=== PATIENT | male | born 1945 | race Caucasian/White ===

== ENCOUNTER 2021-05-11 20:04 | Inpatient (IN) | payer MEDICARE, BC ==
[~2021-05-11] VITALS: Ht 172.7 cm; Wt 69.4 kg
--- NOTE | ~2021-05-11 | EKG ---
[facility] [address] [facility] [place], [place] [address] Draft EK completed, results pending confirmation PATIENT NAME: FILIPE KIMBLE Electrocardiogram DATE OF : 47 PHYSICIAN: PRELIMINARY REPORT #: [id number] REPORT IS CONFIDENTIAL AND NOT TO BE RELEASED WITHOUT AUTHORIZATION
[2021-05-11] MEDS ORDERED: ENTRESTO 24 MG1 EACH PO (20:22)
[2021-05-11] MEDS ORDERED: TOPROL XL50 MG PO (20:22)
[2021-05-11] MEDS ORDERED: PLAVIX75 MG (20:22)
[2021-05-11] MEDS ORDERED: ELIQUIS5 M1 PO (20:22)
[2021-05-12] MEDS ORDERED: AMBIEN CR12.5 MG PO (00:36)
--- NOTE | 2021-05-12 09:47 | OR ---
[facility] [address] [place], [place] [address] Signed DATE OF OPERATION: 05/12/2021 SURGEON: Christopher Willard MD PREOPERATIVE DIAGNOSES: 1. Sepsis. 2. Probable distal common bile duct stone. 3. Elevated liver function test. 4. Anticoagulated. POSTOPERATIVE DIAGNOSES: 1. Sepsis. 2. Probable distal common bile duct stone. 3. Elevated liver function test. 4. Anticoagulated. PROCEDURE: Placement of right femoral vein triple-lumen catheter. ESTIMATED BLOOD LOSS: None. INDICATIONS: Gold is a 75-year-old gentleman, who has significant central and peripheral arterial disease. In fact he just had a left femoral stent placed last week. He is on two different anticoagulants. He had been on opiates and had not had a bowel movement a week. He came to our emergency room for evaluation. His liver function tests were elevated including the total bilirubin, AST, ALT and alkaline phosphatase. He had vomited while in the emergency room and there was some concern about aspiration pneumonia. A CT scan of the chest, abdomen, and pelvis had been performed. The gallbladder itself was not particularly concerning but there appears to be a stone in his distal common bile duct. The distal common bile duct measures about 1.3 cm in diameter. He had been admitted prior to his knowledge to our Internal Medicine service. He has been hypotensive and tachycardic and requiring pressor support. I have been called to come emergently to the ICU to place a central venous access for this gentleman. Given his medication for anticoagulation, we decided we would use his right femoral approach and stay away from the femoral stent on the left side if possible. In addition, he has had significant surgeries and significant scarring in the left groin as well. I explained to Jimbo the nature of a central venous catheter. He understands there is risk including, but not limited to bleeding, infection, scarring, Electronically Signed By: CHRISTOPHER WILLARD MD 05/12/21 0947 PATIENT NAME: GOLD TORRES OPERATIVE REPORT DATE OF : 47 REPORT #: [id number] PHYSICIAN: CHRISTOPHER WILLARD MD PCP: LOIDA MARQUEZ MD REPORT IS CONFIDENTIAL AND NOT TO BE RELEASED WITHOUT AUTHORIZATION [facility] [address] [place] [id number] Signed change in contour of the skin as well as infection of the catheter requiring removal. He had expressed understanding and wished to proceed. PROCEDURE NOTE: Jimbo was kept supine in his ICU bed. We could not palpate his pulses, so we had to use a bedside Doppler to find the right femoral artery. We could also hear the femoral vein. We marked that area appropriately. He was then prepped and draped in the usual sterile fashion. After this, the wound was infiltrated with local anesthetic. I used a small needle to find the femoral vein. We then passed a larger needle into the femoral vein with good withdrawal of dark venous nonpulsatile blood. We then passed a wire without difficulty. The tract was dilated and dilator curved in the appropriate direction without resistance. The triple-lumen catheter was inserted over the wire and the wire had been removed. All three ports were able to draw and flush quite nicely dark venous nonpulsatile blood. The catheter was then held in place with interrupted silk sutures. Dry plastic occlusive dressing was applied per nursing staff. Jimbo tolerated the procedure quite well. Christopher Willard MD [facility] /[id number] cc: Christopher Willard MD Copies: CHRISTOPHER WILLARD MD ~ Electronically Signed By: CHRISTOPHER WILLARD MD 05/12/21 0947 PATIENT NAME: GOLD TORRES OPERATIVE REPORT DATE OF : 47 REPORT #: [id number] PHYSICIAN: CHRISTOPHER WILLARD MD PCP: LOIDA MARQUEZ MD REPORT IS CONFIDENTIAL AND NOT TO BE RELEASED WITHOUT AUTHORIZATION
== END 2021-05-12 06:15 | disposition short-term general hospital (02) | DRG 871 ==
LOC: ED 20:04 → CCU 05-12 01:26
PROVIDERS: ADMIT Internal Medicine; ATTEND Internal Medicine
PROC: 06HY33Z Insertion of Infusion Device into Lower Vein, Percutaneous Approach (ICD-10-PCS; principal; 2021-05-12)
PROC: 3E043XZ Introduction of Vasopressor into Central Vein, Percutaneous Approach (ICD-10-PCS; 2021-05-12)
DX: A41.9 Sepsis, unspecified organism (principal); R65.21 Severe sepsis with septic shock; J96.01 Acute respiratory failure with hypoxia; J69.0 Pneumonitis due to inhalation of food and vomit; J18.9 Pneumonia, unspecified organism; K83.09 Other cholangitis; Z20.822 Contact with and (suspected) exposure to COVID-19; I25.5 Ischemic cardiomyopathy; E86.0 Dehydration; K75.9 Inflammatory liver disease, unspecified; K59.03 Drug induced constipation; T40.2X5A Adverse effect of other opioids, initial encounter; I48.91 Unspecified atrial fibrillation; I73.9 Peripheral vascular disease, unspecified; I25.10 Atherosclerotic heart disease of native coronary artery without angina pectoris; G47.00 Insomnia, unspecified; F17.290 Nicotine dependence, other tobacco product, uncomplicated; Z95.0 Presence of cardiac pacemaker; Z98.890 Other specified postprocedural states; Z79.01 Long term (current) use of anticoagulants; Z79.02 Long term (current) use of antithrombotics/antiplatelets; Z79.899 Other long term (current) drug therapy; Z88.1 Allergy status to other antibiotic agents; Z88.8 Allergy status to other drugs, medicaments and biological substances
CPT/HCPCS: 51701; 51798; 71260; 74177; 80053; 81001; 82248; 83605; 83735; 84484; 85025; 87040; 93005; 93010; 99285-25; C9803; J0295; J2370; J2405; J2543; J7030; J7040; J7060; Q9967; U0003

== ENCOUNTER 2021-05-19 13:45 | Emergency (ER) | payer MEDICARE ==
[~2021-05-19] VITALS: Ht 172.7 cm; Wt 69.4 kg
[~2021-05-19 13:45] MED LIST: AMBIEN CR12.5 MG PO; ELIQUIS5 M1 PO; ENTRESTO 24 MG1 EACH PO; PLAVIX75 MG; TOPROL XL50 MG PO
--- OUTSIDE RECORDS SUMMARY | 2021-05-19 13:52 | XMS ---
PreManage Notification: FILIPE TORRES [employer] Events No recent Security Events currently on file CRITERIA MET - [facility] - 2 Visits in 30 Days CARE PROVIDERS VASILE WOLFF [facility] Current PHONE: [phone] Sagar has no Care Guidelines for this patient. Kelsie VISIT COUNT (12 MO.) 2 [facility] TOTAL 2 NOTE: Visits indicate total known visits. ED/UCC VISIT TRACKING (12 MO.) 05/19/2021 13:45 ANDREE Dang OR TYPE: Emergency COMPLAINT: - SWOLLEN LEG 05/11/2021 20:05 ANDREE Dang OR TYPE: Emergency COMPLAINT: - CONSTIPATION INPATIENT VISIT TRACKING (12 MO.) 05/12/2021 08:25 Dominic Sultana OR TYPE: Medical Surgical COMPLAINT: - Septic Shock, Cholangitis DIAGNOSES: - Septic Shock, Cholangitis 05/12/2021 01:26 ANDREE Dang OR TYPE: Critical Care COMPLAINT: - HYPOXIC RESPIRATORY FAILURE DIAGNOSES: - Other specified postprocedural states - Other cholangitis - Other cholangitis - Atherosclerotic heart disease of [place] coronary artery without angina pectoris - Drug induced constipation - Inflammatory liver disease, unspecified - prison (current) use of antithrombotics/antiplatelets - Unspecified atrial fibrillation - Allergy status to other antibiotic agents - Peripheral vascular disease, unspecified - Insomnia, unspecified - Atherosclerotic heart disease of [place] coronary artery without angina pectoris - Sepsis, unspecified organism - Acute respiratory failure with hypoxia - Ischemic cardiomyopathy - Severe sepsis with septic shock - Presence of cardiac pacemaker - Allergy status to other antibiotic agents - 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/antiplatelets - Other fci (current) drug therapy - Ischemic cardiomyopathy - Drug induced constipation - prison (current) use of anticoagulants - Nicotine dependence, other tobacco product, uncomplicated - Inflammatory liver disease, unspecified - Presence of cardiac pacemaker - Pneumonitis due to inhalation of food and vomit - Allergy status to other drugs, medicaments and biological substances - Dehydration - Insomnia, unspecified - Dehydration - Pneumonia, unspecified organism - Allergy status to other drugs, medicaments and biological substances - Pneumonitis due to inhalation of food and vomit - Pneumonia, unspecified organism - Unspecified atrial fibrillation - Adverse effect of other opioids, initial encounter - Adverse effect of other opioids, initial encounter - Other fci (current) drug therapy - Peripheral vascular disease, unspecified - predatory animal exterminator (current) use of anticoagulants - Other specified postprocedural states - Severe sepsis with septic shock - Acute respiratory failure with hypoxia - Nicotine dependence, other tobacco product, uncomplicated [email or web address]
[2021-05-19] MEDS ORDERED: OXYCODON-ACETA1 EAC2 PO (13:59)
[2021-05-19] MEDS ORDERED: ASPIRIN81 MG PO (14:00)
[2021-05-19] MEDS ORDERED: ROSUVASTATIN CA10 MG PO (14:00)
== END 2021-05-19 19:03 | disposition short-term general hospital (02) ==
LOC: ED 13:45
DX: I99.8 Other disorder of circulatory system (principal); I47.2 Ventricular tachycardia; I10 Essential (primary) hypertension; F17.200 Nicotine dependence, unspecified, uncomplicated; Z88.1 Allergy status to other antibiotic agents; Z79.899 Other long term (current) drug therapy; Z79.82 Long term (current) use of aspirin; Z79.01 Long term (current) use of anticoagulants; Z79.02 Long term (current) use of antithrombotics/antiplatelets; Z98.890 Other specified postprocedural states
CPT/HCPCS: 73706; 80053; 82553; 85025; 99285-25; C9803; J0282; J1170; J1644; J3480; Q9967; U0003